=== PATIENT | male | born 1945 | race Caucasian/White ===

== ENCOUNTER 2023-04-11 09:02 | Outpatient (REF) | payer MEDICARE, SELFPAY ==
[2023-04-11 14:04] LABS: Appearance Urine Clear; Color Urine Yellow; Glucose Urine UA Negative (Negative); Leukocyte Esterase Urine Trace (Negative); Nitrite Urine Negative (Negative); PH 6.5 (5.0-9.0); UMIC TRIGGER UA YES; Urine Blood Negative (Negative); Urine Ketones Negative (Negative); Urine Protein 100 (2+) mg/dL (Neg-Trace)
[2023-04-11 14:11] LABS: Bacteria Urine None Seen (None Seen); Hyaline Casts Urine 0-2 /LPF (0-2); RBC Urine 0-2 /HPF (0-2); Squamous Epithelial Cell Urine 0-2 /HPF (0-2); WBC Urine 21-50 /HPF (0-5)
[2023-04-11 14:37] LABS: Creatinine Urine 153.25 mg/dL; Microalbum/Creatinine Ratio Ur 210.7 ug/mg cr
[2023-04-11 14:39] LABS: Alanine Aminotransferase 21 U/L (0-40); Albumin Level 3.8 g/dL (3.5-5.0); Alkaline Phosphatase 229 U/L (39-117); Anion Gap 11 (12-20); Aspartate Amino Transferase 16 U/L (5-37); Bilirubin Total 1.6 mg/dL (0.0-1.0); Blood Urea Nitrogen 14 mg/dL (9-16); Calcium 9.2 mg/dL (8.4-10.2); Carbon Dioxide 30 mmol/L (22-29); Chloride 103 mmol/L (96-108); Cholesterol 111 mg/dL; Estimated Glomerular Filt Rate > 60; Glucose Fasting 127 mg/dL (60-99); HDL Cholesterol 37 mg/dL; LDL Cholesterol Calculated 62 mg/dl; Potassium 4.4 mmol/L (3.3-5.1); Sodium 140 mmol/L (135-145); Total Protein 6.9 g/dL (6.5-8.0); Triglycerides 60 mg/dL
== END 2023-04-11 09:03 | disposition home or self-care (01) ==
LOC: HO.CHCLDS 09:02
PROVIDERS: Visit Provider Internal Medicine
DX: E11.9 Type 2 diabetes mellitus without complications (principal); E78.49 Other hyperlipidemia
CPT/HCPCS: 36415; 80053; 80061; 81001; 81003; 82043

== ENCOUNTER 2023-05-17 09:47 | Outpatient (REF) | payer MEDICARE, SELFPAY ==
[2023-05-17 14:37] LABS: Alkaline Phosphatase 187 U/L (39-117)
[2023-05-25 06:25] LABS: Alk.Phos Iso. Macrohepatic 0 % (<=0); Alk.Phos Isoenzymes Bone 61 % (28-66); Alk.Phos Isoenzymes Intest 0 % (1-24); Alk.Phos Isoenzymes Liver 39 % (25-69); Alk.Phos Isoenzymes Placental 0 % (<=0); Alk.Phos Isoenzymes Total 183 U/L (35-144)
== END 2023-05-17 09:48 | disposition home or self-care (01) ==
LOC: HO.CHCLDS 09:47
PROVIDERS: Visit Provider Internal Medicine
DX: R74.8 Abnormal levels of other serum enzymes (principal)
CPT/HCPCS: 36415; 84075; 84080

== ENCOUNTER 2023-05-23 11:38 | Outpatient (REF) | payer MEDICARE, SELFPAY ==
[2023-05-23 14:54] LABS: Thyroid Stimulating Hormone 1.52 uIU/mL (0.32-4.0)
[2023-05-23 15:18] LABS: Vitamin B12 666 pg/mL (200-900)
[2023-05-24 08:35] LABS: ~HepC Num1 0.08 S/CO (0.00-0.79); ~Hepatitis C Antibody Nonreactive (Nonreactive)
[2023-05-25 08:14] LABS: RPR Rapid Plasma Reagin NON-REACTIVE (NON-REACTIVE)
== END 2023-05-23 11:39 | disposition home or self-care (01) ==
LOC: HO.CHCLDS 11:38
PROVIDERS: Visit Provider Internal Medicine
DX: Z11.59 Encounter for screening for other viral diseases (principal); R41.3 Other amnesia
CPT/HCPCS: 36415; 82607; 84443; 86592; 86803

== ENCOUNTER 2024-07-31 10:26 | Outpatient (REF) | payer MEDICARE, SELFPAY ==
[2024-07-31 14:13] LABS: MANUAL DIFF FLAG NO
[2024-07-31 14:22] LABS: Basophils Percent Auto 0.4 % (0-2); Eosinophils Absolute Auto 0.1 X10*3/uL (0.0-0.4); Eosinophils Percent Auto 1.3 % (0-4); Hematocrit 40.3 % (42.0-52.0); Hemoglobin 13.4 g/dl (14.0-18.0); Imm Gran Abs Auto 0.03 X10*3/uL (0.00-0.03); Imm Gran Pct Auto 0.4 % (0.0-0.4); Lymphocytes Absolute Auto 1.2 X10*3/uL (1.2-4.9); Lymphocytes Percent Auto 14.6 % (20-40); Mean Corpuscular HGB Conc 33.3 g/dl (31.0-36.0); Mean Corpuscular Hemoglobin 30.5 pg (27.0-33.0); Mean Corpuscular Volume 91.6 fL (80.0-98.0); Mean Platelet Volume 10.1 fL (9.4-12.4); Monocytes Absolute Auto 0.5 X10*3/uL (0.1-1.2); Monocytes Percent Auto 6.6 % (2-11); Neutrophils Percent Auto 76.7 % (45-73); Platelet Count 223 X10*3/uL (160-400); Red Cell Distribution Width 12.5 % (11.0-16.0); White Blood Count 7.9 X10*3/uL (4.8-10.8)
[2024-07-31 15:24] LABS: TSH reflex Free T4 1.91 uIU/mL (0.32-4.0); Vitamin D 25-OH Total 21.6 ng/mL (>30)
[2024-07-31 15:34] LABS: Folate 9.9 ng/mL (> or = 4.0); Vitamin B12 594 pg/mL (200-900)
[2024-07-31 15:56] LABS: Alanine Aminotransferase 32 U/L (0-40); Albumin Level 3.7 g/dL (3.5-5.0); Alkaline Phosphatase 223 U/L (39-117); Anion Gap 8 (12-20); Aspartate Amino Transferase 27 U/L (5-37); Bilirubin Total 1.2 mg/dL (0.0-1.0); Blood Urea Nitrogen 20 mg/dL (9-16); Calcium 8.8 mg/dL (8.4-10.2); Carbon Dioxide 31 mmol/L (22-29); Chloride 102 mmol/L (96-108); Cholesterol 100 mg/dL (<200); Estimated Glomerular Filt Rate > 60; Glucose Random 337 mg/dL (60-115); HDL Cholesterol 44 mg/dL (>40); LDL Cholesterol Calculated 36 mg/dL (<100); Potassium 4.1 mmol/L (3.3-5.1); Sodium 137 mmol/L (135-145); Total Protein 6.4 g/dL (6.5-8.0); Triglycerides 104 mg/dL (<150)
[2024-07-31 16:56] LABS: Creatinine Urine 83.99 mg/dL; Microalbum/Creatinine Ratio Ur 195.2 ug/mg cr (<30)
== END 2024-07-31 10:27 | disposition home or self-care (01) ==
LOC: HO.CHCLDS 10:26
PROVIDERS: Visit Provider Internal Medicine
DX: E11.9 Type 2 diabetes mellitus without complications (principal); E78.49 Other hyperlipidemia; R41.3 Other amnesia
CPT/HCPCS: 36415; 80053; 80061; 82043; 82306; 82570; 82607; 82746; 84443; 85025

== ENCOUNTER 2024-12-10 10:01 | Outpatient (REF) | payer MEDICARE, SELFPAY ==
--- NOTE | ~2024-12-10 | XR_ITS ---
EXAMINATION: XR CHEST 2 VIEWS HISTORY: CORTEZ COMPARISON: There are no prior studies for comparison. FINDINGS: PA and lateral views of the chest are submitted. The lungs are expanded and clear. There is no pleural effusion, pneumothorax, or pulmonary vascular congestion. The heart is normal in size. The aorta is calcified. There is degenerative disc disease of the spine. XR/XR chest 2V IMPRESSION: Clear lungs. Electronically signed by: Matt Lee MD 12/10/2024 10:32 AM EDT
--- OUTSIDE RECORDS SUMMARY | 2024-12-10 11:27 | XMS_ITS | Encounter Summary ---
Author Organization [employer] Address [address] [place] [address] Care Team Providers Care Material Checker Name Role Phone Jovanna Mcarthur MD Primary Care Provider [phone] Reason for Visit * Reason Comments Consult NPV-tinea pedis and nail distrophy * Orthopedic (Routine) - Closed Specialty Diagnoses / Procedures Referred By Adolfo brewer Referred To Contact Orthopaedic Surgery Diagnoses Tinea pedis Nail dystrophy Procedures AMB Referral to Podiatry Jovanna Mcarthur MD [address] [place] [address] Phone: tel: fax: Puneet Chase DPM [address] [address] Phone: tel: fax: Referral ID Status Reason Start Date Expiration Date V isits Requested Visits Authorized [id number] Closed Consult and Treat 1 Encounter Details Date Type Department Care Team (Late st Contact Info) Description 11/20/2024 8:45 AM EST Consult Orthopedic Surgery - [place] [address] [phone] Puneet Chase DPM [address] [address] Dermatophytosis of nail (Primary Dx); Pain in toe of right foot; Pain in toe of left foot; Diabetic mononeuropathy simplex (CMS/HCC); Type II diabetes mellitus with peripheral circulatory disorder (CMS/HCC); Corns and callosities; Metatarsalgia of both feet; Hammer toe of left foot; Acquired hammer toe of right foot Social History Tobacco Use Types Packs/Day Years Used Date Smoking Tobacco: Never Assessed Sex and Gender Information Value Date Recorded Sex Assigned at Not on file Legal Sex Male 4:34 AM EST Gender Identity Not on file Sexual Orientation Not on file documented as of this encounter Last Filed Vital Signs Vital Sign Reading Time Taken Comments Blood Pressure - - Pulse - - Temperature - - Respiratory Rate - - Oxygen Saturation - - Inhaled Oxygen Concentration - - Weight 83.9 kg (185 lb) 11/20/2024 10:51 AM EST Height 167.6 cm (5' 6 ) 11/20/2024 10:51 AM EST Body Mass Index 29.86 11/20/2024 10:51 AM EST documented in this encounter Progress Notes * Puneet Chase DPM - 11/20/2024 8:45 AM EST Last PCP visit:Referring MD: Jovanna Mcarthur MD 08/04/2024 IDENTIFIER: Christophe is a 79 y.o. year old male who presents for consultation. CC: Foot pain HPI: Patient presents today complaint pain is he reports he has long painful thickened nails thick skin and balls both feet is a type II diabetic endorses occasional numbness burning tingling to his feet he states he is worried about cutting himself he notes the pain discomfort is a 7 out of 10 he states very thick painful has difficulty take care of some presents today and was referred for evaluationnotes that sometimes gets an itchy rash of both feet he has been using antifungal medications ROS: GENERAL: Pt denies nausea, fever, vomiting, chills, or shortness of breath. Pt in NAD. CARDIOLOGY: pt denies chest pain, palpitations LUNGS: pt denies shortness of breath MUSCULOSKELETAL: See HPI, otherwise no joint pain or swelling, back pain, or muscle pain. SKIN: see HPI, otherwise no lesions, rash or itching NEURO: No persistent headache, weakness or numbness The remainder of the review of systems is noncontributory PAST MEDICAL HISTORY: There is no problem list on file for this patient. Type 2 diabetes benign prostatic hyperplasia hyperlipidemia hypertension low vitamin D SOCIAL HISTORY: Social History Tobacco Use Smoking status: Not on file Smokeless tobacco: Not on file Substance Use Topics Alcohol use: Not on file ACTIVE MEDICATIONS: No outpatient medications have been marked as taking for the 11/20/24 encounter (Consult) with Puneet Chase DPM. ALLERGIES: Not on File PHYSICAL EXAM: Visit Vitals Ht 1.676 m (66 ) Wt 83.9 kg (185 lb) BMI 29.86 kg/m?? BSA 1.93 m?? PODIATRIC EXAMINATION: GENERAL: Patient appears well nourished, with NAD. VASCULAR: Dorsalis pedis pulses are 0/4 bilaterally and Posterior tibial pulses are 1/4 bilaterally. Capillary filling time within normal limits the digits. No pallor on elevation or rubor on dependency. No varicosities. Denies rest pain or claudication pain. NEUROLOGICAL: Sharp/dull sensation diminished , protective sensation intact 10/10 with 5.07 semmes kay bilaterally, vibratory sensation with tuning fork intact to the tibial tuberosity. ORTHOPEDIC: Good muscle strength 5/5 of all flexors and extensors. Dorsi flexion of ankle ,10 degrees, plantar flexion WNL. No muscle atrophy. DERMATOLOGICAL:. Toenails: Left Toenail(s) 1-5: Crumbling upon debridement, subungual debris, discoloration, dystrophy, elongation, mycotic appearance, onychomycosis, pain and thickening. Right Toenail(s) 1-5: Crumbling upon debridement, subungual debris, discoloration, dystrophy, elongation, mycotic appearance, onychomycosis, pain and thickening. Annular scaling bilateral feet moccasin distribution Skin thinning texture shiny appearance diffuse hyperpigmentation bilaterally pedal hair decreased Hyperkeratotic tissue subfifth metatarsal bilaterally BIOMECHANICS: Ankle ROM WNL, STJ ROM wnl, MTJ ROM wnl, 1st MPJ ROM wnl. IMAGING: IMPRESSION: 1. Dermatophytosis of nail 2. Pain in toe of right foot 3. Pain in toe of left foot 4. Diabetic mononeuropathy simplex (CMS/HCC) 5. Type II diabetes mellitus with peripheral circulatory disorder (CMS/HCC) 6. Corns and callosities 7. Metatarsalgia of both feet 8. Hammer toe of left foot 9. Acquired hammer toe of right foot PLAN: Pt was seen and examined, history reviewed. Discussed with patient regarding proper glucose control, exercise, and diet. Explained to patient proper shoe gear, and importance of daily foot checks. I reviewed neuropathy and why it occurs in diabetics. I educated the patient on proper blood sugar control and the importance of an HgBA1c of less than 7.0%. I reviewed the signs and symptoms of neuropathy with the patient Pt to return for another evaluation in 3 months. Debridement of mycotic toenails 6-10: Verbal informed consent was obtained from the patient. Greater than 6 nails were aseptically debrided in thickness and length with nail nippers Hyperkeratotic tissue debrided pared with a number #15 scalpel blade x2 Puneet Chase DPM documented in this encounter Plan of Treatment Upcoming Encounters Date Type Department Care Team (Late st Contact Info) Description 02/23/2025 8:15 AM EDT Office Visit Orthopedic Surgery - [place] [address] [phone] Puneet Chase DPM [address] [address] documented as of this encounter Visit Diagnoses Diagnosis Dermatophytosis of nail- Primary Pain in toe of right foot Pain in soft tissues of limb Pain in toe of left foot Pain in soft tissues of limb Diabetic mononeuropathy simplex (CMS/HCC) Type II or unspecified type diabetes mellitus with neurological manifestations, not stated as uncontrolled Type II diabetes mellitus with peripheral circulatory disorder (CMS/HCC) Type II or unspecified type diabetes mellitus with peripheral circulatory disorders, not stated as uncontrolled Corns and callosities Metatarsalgia of both feet Hammer toe of left foot Acquired hammer toe of right foot documented in this encounter Care Teams Material Checker Relationship Specialty Start Date End Date Jovanna Mcarthur MD [address] [place] [phone] PCP - General Internal Medicine 08/07/24 documented as of this encounter
--- OUTSIDE RECORDS SUMMARY | 2024-12-10 11:27 | XMS_ITS | Encounter Summary ---
Author Organization [employer] Address [address] [facility] 7[address] [place] [address] Care Team Providers Care Sander Portable Machine Name Role Phone Jovanna Mcarthur MD Primary Care Provider [phone] Encounter Details Date Type Department Care Team (Latest Contact Info) Description 12/01/2024 Travel Social History Tobacco Use Types Packs/Day Years Used Date Smoking Tobacco: Never Passive Smoke Exposure: Never Smokeless Tobacco: Never Comments:States he smokes fo r some time. Cannot tell for how long and how many cigarettes a day. Depression Answer Date Recorded Patient Health Questionnaire-9 Score 2 06/25/2024 Patient Health Questionnaire-9 Score 2 06/25/2024 Last PHQ-9: Questionnaire Data Not on file 1 Housing Stability Answer Date Recorded What is your housing situation today? I have erin winter 06/18/[address] you li ve. Do you have problems with any of the following? None of the above 06/18/2024 Food Insecurity Answer Date Recorded Within the past 12 months, y ou worried that your food would run out before you got money to buy more: Never True 06/18/2024 Within the past 12 months,th e food you bought just didn't last and you didn't have enough money to get more: Never True 10/2023 Transportation Answer Date Recorded In the past 12 months, has l ack of transportation kept you from medical appts, meetings, work or from getting things needed for daily living? No 06/18/2024 Utilities Answer Date Recorded In the past 12 months, has t he electric, gas, oil or water company threatened to shut off services in your home? No 06/18/2024 Depression Answer Date Recorded Patient Health Questionnaire-2 Score 1 06/25/2024 Internet Access Answer Date Recorded Internet Access Q1 Yes 06/18/2024 Internet Access Q2 Not on file 06/18/2024 Sex and Gender Information Value Date Recorded Sex Assigned at Male 07/17/2022 10:14 AM EDT Legal Sex Male 10:14 AM EDT Gender Identity Male 07/17/2022 10:14 AM EDT Sexual Orientation Straight 07/17/2022 10 :14 AM EDT documented as of this encounter Plan of Treatment Upcoming Encounters Date Type Department Care Team (Late st Contact Info) Description 03/09/2025 11:00 AM EDT Office Visit [facility] PEDS [address] [place] [address] Jovanna Mcarthur MD [address] [place] [address] documented as of this encounter Goals Goal Patient Goal Type Associated Problems Recent Progress Patient-Stated? Author Patient will adhere to medication regimen General No Cassia Perales Hemoglobin A1c < 8 Result Component 7.5( 10:53 AM EDT) No Cassia Perales documented as of this encounter Visit Diagnoses Not on filedocumented in this encounter Additional Health Concerns Assessment Noted Time PHQ-9 Depression Total Score: 2 06/25/20 24 10:44 AM EDT documented as of this encounter Care Teams Sander Portable Machine Relationship Specialty Start Date End Date Jovanna Mcarthur MD [address] [place] [address] PCP - General Internal Medicine 07/11/18 documented as of this encounter
--- OUTSIDE RECORDS SUMMARY | 2024-12-10 11:27 | XMS_ITS | Encounter Summary ---
Author Organization [employer] [facility] Address [address] [facility] 7[address] [place] [address] Care Team Providers Care Criminal Lawyer Name Role Phone Jovanna Mcarthur MD Primary Care Provider [phone] Reason for Referral * Consultation (Routine) - Authorized Specialty Diagnoses / Procedures Referred By Contac t Referred To Contact Cardiology Diagnoses CORTEZ (dyspnea on exertion) Jovanna Mcarthur MD [address] [place] [address] Phone: tel: fax: [facility] Cardiology [address] [facility] 2nd [address] [place], [place] Phone: tel: fax: Referral ID Status Reason Start Date Expiration Date Visits Requested Visits Authorized [id number] Authorized Specialty Services Required 12/01/2024 12/01/2025 1 1 Encounter Details Date Type Department Care Team (Late st Contact Info) Description 12/01/2024 10:00 AM EDT Office Visit [facility] MED & PEDS [address] [place] [address] Jovanna Mcarthur MD [address] [place] [address] CORTEZ (dyspnea on exertion) (Primary Dx); Type 2 diabetes mellitus without complication, without long-term current use of insulin ([facility]); CORTEZ (dyspnea on exertion); Primary hypertension Social History Tobacco Use Types Packs/Day Years [...] AM EDT documented as of this encounter Last Filed Vital Signs Vital Sign Reading Time Taken Comments Blood Pressure 122/60 12/01/2024 10:10 AM EDT Pulse 68 12/01/2024 10:10 AM EDT Temperature 36.2 ??C (97.2 ??F) 12/01/2024 10:10 AM E DT Respiratory Rate 18 12/01/2024 10:10 AM EDT Oxygen Saturation 98% 12/01/2024 10:10 AM EDT Inhaled Oxygen Concentration - - Weight 68 kg (150 lb) 12/01/2024 10:10 AM EDT Height 162.6 cm (5' 4 ) 12/01/2024 10:10 AM EDT Body Mass Index 25.75 12/01/2024 10:10 AM EDT documented in this encounter Progress Notes * Jovanna Mcarthur MD - 12/01/2024 10:00 AM EDT Subjective Patient ID: Yvan Blackburn is a 79 y.o. male who presents for No chief complaint on file.. HPI Here for follow up . Pt was c/o SOB at his last visit. Echo done shows mild grade 1, diastolic dysfunction. Patient came with his daughter who reports that he is still short of breath. He has completed the course of Lasix. The chest x-ray was not done for unclear reason. History of diabetes. Patient is doing overall well. Denies any episode or symptoms of hypoglycemia since the last office visit. Medication is administered by his daughter. History of hypertension. Patient is compliant to his medication. No reported side effect. Patient Active Problem List Diagnosis Benign prostatic hyperplasia Congenital cystic kidney disease Diabetes mellitus, type II ([facility]) Erectile dysfunction Hyperlipidemia Hypertension Low vitamin D level Pure hypercholesterolemia No Known Allergies Current Outpatient Medications on File Prior to Visit Medication Sig Dispense Refill Alcohol Swabs 70 % pads Use to test blood sugar 2 times daily 100 each 0 amLODIPine (Norvasc) 10 MG tablet Take 1 tablet (10 mg) by mouth Once per day. Dose increased to 10mg once a day 30 tablet 11 ammonium lactate (Lac-Hydrin Five) 5 % lotion To apply to the affected area 2 times a day 226 g 3 atorvastatin (Lipitor) 40 MG tablet Take 1 tablet (40 mg) by mouth at bedtime. 90 tablet 3 Blood Glucose Monitoring Suppl ([email or web address] [place] Lite) w/Device kit Use to test blood sugar 2 times daily 1 kit 0 brimonidine (AlphaGAN) 0.2 % ophthalmic solution Administer 1 drop into both eyes at bedtime. Prescribed as BID cholecalciferol (Vitamin D-3) 50 MCG (2000 UT) capsule Take 1 capsule (50 mcg) by mouth Once per day. 30 capsule 11 donepezil (Aricept) 10 MG tablet Take 1 tablet (10 mg) by mouth at bedtime. 30 tablet 11 FREESTYLE LITE test strip Use to test blood sugar 2 times daily 100 each 12 glipiZIDE (Glucotrol) 5 MG tablet TAKE ONE TABLET TWICE DAILY BEFORE MEALS 180 tablet 3 Lancets misc Use to test blood sugar 2 times daily 100 each 11 linaGLIPtin (Tradjenta) 5 MG tablet Take 1 tablet (5 mg) by mouth in the morning. 90 tablet 3 lisinopril (Zestril) 30 MG tablet Take 1 tablet (30 mg) by mouth in the morning. 90 tablet 3 Nutritional Supplements (Boost High Protein) liquid Take 237 mL by mouth in the morning and at bedtime. 1 can 2 times a day. 1 box a month 1 mL 0 QUEtiapine (SEROquel) 25 MG tablet TAKE ONE TABLET EVERY NIGHT AT BEDTIME 30 tablet 0 terazosin (Hytrin) 5 MG capsule TAKE TWO CAPSULES EVERY DAY AT BEDTIME 90 capsule 3 [DISCONTINUED] furosemide (Lasix) 20 MG tablet Take 0.5 tablets (10 mg) by mouth Once per day. 15 tablet 0 No current facility-administered medications on file prior to visit. Review of Systems Constitutional: Negative for appetite change, chills and diaphoresis. Eyes: Negative for photophobia, pain and redness. Respiratory: Positive for shortness of breath. Negative for cough and choking. Cardiovascular: Negative for palpitations and leg swelling. Gastrointestinal: Negative for blood in stool, constipation and diarrhea. Musculoskeletal: Negative for gait problem, joint swelling and myalgias. Skin: Negative for pallor. Objective BP 122/60 (BP Location: Left arm, Patient Position: Sitting, BP Cuff Size: Adult) Pulse 68 Temp97.2 ??F (36.2 ??C) (Oral) Resp 18 Ht 5' 4 (1.626 m) Wt 150 lb (68 kg) SpO2 98% BMI 25.75 kg/m?? Physical Exam Constitutional: General: He is not in acute distress. Appearance: Normal appearance. He is not ill-appearing, toxic-appearing or diaphoretic. Cardiovascular: Rate and Rhythm: Normal rate. Pulmonary: Effort: Pulmonary effort is normal. Neurological: Mental Status: He is alert. Motor: No weakness, tremor, atrophy, abnormal muscle tone, seizure activity or pronator drift. Coordination: Coordination is intact. Gait: Gait normal. Assessment/Plan Diagnoses and all orders for this visit: CORTEZ (dyspnea on exertion) - furosemide (Lasix) 20 MG tablet; Take 0.5 tablets (10 mg) by mouth Once per day. - Referral to Cardiology; Future Type 2 diabetes mellitus without complication, without long-term current use of insulin ([facility]) Comments: A1c is 7.5 No change will be made to the current medication to avoid hypoglycemia Patient is to keep as active as tolerated. Orders: - POCT Glucose - POCT HGB A1C CORTEZ (dyspnea on exertion) Comments: Chest x-ray to perform. Echocardiogram results reviewed. Patient needs to be referred to cardiology. Orders: - furosemide (Lasix) 20 MG tablet; Take 0.5 tablets (10 mg) by mouth Once per day. - Referral to Cardiology; Future Primary hypertension Comments: Blood pressure is at goal No change in management. documented in this encounter Plan of Treatment Upcoming Encounters Date Type Department Care Team (Late st Contact Info) Description 03/09/2025 11:00 AM EDT Office Visit [facility] P[facility] [address] [place] [address] Jovanna Mcarthur MD [address] [place] [phone] Scheduled Referrals Name Type Priority Associated Diagnoses Order Schedule Referral to Cardiology Outpatient Referral Routine CORTEZ (dyspnea on exertion) Expected: 12/01/2024 (Approximate), Expires: 12/01/2025 documented as of this encounter Goals Goal Patient Goal Type Associated Problems Recent Progress Patient-Stated? Author Patient will adhere to medication regimen General No Cassia Perales Hemoglobin A1c < 8 Result Component 7.5( 10:53 AM EDT) No Cassia Perales documented as of this encounter Procedures Procedure Name Priority Date/Time Associated Diagnosis Comments POCT GLYCATED HEMOGLOBIN, TOTAL Routine 12/01/2024 10:53 AM EDT Type 2 diabetes mellitus without complication, without long-term current use of insulin ([facility]) POCT GLUCOSE Routine 12/01/2024 10:53 AM EDT Type 2 diabetes mellitus without complication, without long-term current use of insulin ([facility]) documented in this encounter Results * (ABNORMAL) POCT HGB A1C (12/01/2024 10:53 AM EDT) Hemoglobin A1C 7.5(A) 4.0 - 6.0 % QC Media Lot # [id number] Blood 12/01/2024 10:5 3 AM EDT us Jovanna Mcarthur MD POINT OF CARE TEST ENTER/ED IT ORDERABLES Final Result * (ABNORMAL) POCT Glucose (12/01/2024 10:53 AM EDT) Glucose Blood, POC 292(A) 60 - 200 mg/dL QC Media Lot # [id number] Lot# Expiration Date Blood Capillary blood specimen / Unknown 12/01/2024 10:53 AM EDT Jovanna Mcarthur MD POINT OF CARE TEST ENTER/ED IT ORDERABLES Final Result documented in this encounter Visit Diagnoses Diagnosis CORTEZ (dyspnea on exertion)- Primary Other dyspnea and respiratory abnormality Type 2 diabetes mellitus without complication, without long-term current use of insulin ([facility]) Primary hypertension Unspecified essential hypertension documented in this encounter Additional Health Concerns Assessment Noted Time PHQ-9 Depression Total Score: 2 06/25/20 24 10:44 AM EDT documented as of this encounter Care Teams Criminal Lawyer Relationship Specialty Start Date End Date Jovanna Mcarthur MD [address] [place] [phone] PCP - General Internal Medicine 07/11/18 documented as of this encounter
--- OUTSIDE RECORDS SUMMARY | 2024-12-10 11:27 | XMS_ITS | Encounter Summary ---
Author Organization [employer] Address [address] [facility] 7t [place] [address] Care Team Providers Care Strike Off Machine Operator Name Role Phone Jovanna Mcarthur MD Primary Care Provider [phone] Reason for Visit * Reason Comments Pre-visit Planning SDOH negative. Tobac co screening negative. Encounter Details Date Type Department Care Team ([facility] Contact Info) Description 11/24/2024 Patient Outreach [facility] PEDS [address] [place], [place] [phone] Jovanna Mcarthur MD [address] [place], [place] [phone] Pre-visit Planning (SDOH negative. Tobacco screening negative. ) Social History Tobacco Use Types Packs/Day Years [...] AM EDT documented as of this encounter Progress Notes * Maggie Molina - 11/24/2024 3:39 PM EDT CC Maggie Mobley placed successful outbound call to patient for pre-visit planning. Patient name and confirmed. Patient confirms appt date and time, and has transportation arrangements. Biggest concern for appointment at this time is no concerns. Appropriate screenings completed in anticipation ofappointment. documented in this encounter Plan of Treatment Upcoming Encounters Date Type Department Care Team ([facility] st Contact Info) Description 03/09/2025 11:00 AM EDT Office Visit [facility] PED[facility] [address] [place] [address] Jovanna Mcarthur MD [address] [place] [address] documented as of this encounter Goals Goal [...] documented as of this encounter Care Teams Strike Off Machine Operator Relationship Specialty Start Date End Date Jovanna Mcarthur MD [address] [place] [address] PCP - General Internal Medicine 07/11/18 documented as of this encounter
--- OUTSIDE RECORDS SUMMARY | 2024-12-10 11:28 | XMS_ITS | Encounter Summary ---
Author Organization [employer] Address [address] [facility] 7 [place] [address] Care Team Providers Care Human Service Coordinator Name Role Phone Jovanna Mcarthur MD Primary Care Provider [phone]- [phone] Reason for Referral * Imaging (Routine) - Closed Specialty Diagnoses / Procedures Referred By Contac t Referred To Contact Radiology Diagnoses Elevated alkaline phosphatase in Procedures US Abdomen Complete Jovanna Mcarthur MD [address] [place] [address] Phone: tel: fax: [facility] [address] [place], [place] Phone: tel: fax: Referral ID Status Reason Start Date Expiration Date Visits Re quested Visits Authorized [id number] Closed 04/11/2023 04/10/2024 1 1 Encounter Details Date Type Department Care Team (Late st Contact Info) Description 04/11/2023 Orders Only [facility] MED & PEDS [address] [place], [place] [phone] Jovanna Mcarthur MD [address] [place], [place] [phone] Elevated alkaline phosphatase in (Primary Dx) Social History Tobacco Use Types Packs/Day Years Used Date Smoking Tobacco: Unknown Passive Smoke Exposure: Never Smokeless Tobacco: Never Comments:States he smokes fo r some time. Cannot tell for how long and how many cigarettes a day. Depression Answer Date Recorded Patient Health Questionnaire-9 Score 0 01/30/2023 Depression Answer Date Recorded Patient Health Questionnaire-2 Score 0 01/30/2023 Sex and Gender Information Value Date Recorded Sex Assigned at Male 07/17/2022 10:14 AM EDT Legal Sex Male 10:14 AM EDT Gender Identity Male 07/17/2022 10:14 AM EDT Sexual Orientation Straight 07/17/2022 10 :14 AM EDT COVID-19 Exposure Response Date Recorded In the last 10 days, have yo u been in contact with someone who was confirmed or suspected to have Coronavirus/COVID-19? No / Unsure 03/12/2023 2:03 PM EDT documented as of this encounter Progress Notes * Jovanna Mcarthur MD - 04/11/2023 3:09 PM EDT Elevated Alk phos. US abdo ordered. documented in this encounter Plan of Treatment Upcoming Encounters Date Type Department Care Team (Late st Contact Info) Description 03/09/2025 11:00 AM EDT Office Visit [facility] CH[facility] MED & PEDS [address] [place] [address] Jovanna Mcarthur MD [address] [place] [address] Scheduled Orders Name Type Priority Associated Diagnoses Orde r Schedule US Abdomen Complete Imaging Routine Elevated alkaline phosphatase in Expected: 04/11/2023, Expires: 04/11/2024 documented as of this encounter Visit Diagnoses Diagnosis Elevated alkaline phosphatase in - Primary documented in this encounter Additional Health Concerns Assessment Noted Time PHQ-9 Depression Total Score: 0 01/31/20 23 3:12 PM EDT documented as of this encounter Care Teams Human Service Coordinator Relationship Specialty Start Date End Date Jovanna Mcarthur MD [address] [place] [address] PCP - General Internal Medicine 07/11/18 documented as of this encounter
--- OUTSIDE RECORDS SUMMARY | 2024-12-10 11:28 | XMS_ITS | Encounter Summary ---
Author Organization [employer] Address [address] [facility] 7t [place] [address] Care Team Providers Care Tool Lapper Hand Name Role Phone Jovanna Mcarthur MD Primary Care Provider [phone]- [phone] Encounter Details Date Type Department Care Team ([facility] st Contact Info) Description 08/31/2024 Orders Only [facility] CH[facility] MED & PEDS [address] [place], [place] [phone] Jovanna Mcarthur MD [address] [place] [address] Social History Tobacco Use Types Packs/Day Years [...] Description 03/09/2025 11:00 AM EDT Office Visit [facility] MED & PEDS [address] [place] [address] Jovanna Mcarthur MD [address] [place] [address] documented as of this encounter Goals Goal Patient Goal Type Associated Problems Recent Progress Patient-Stated? Author Patient will adhere to medication regimen General No Cassia Perales Hemoglobin A1c < 8 Result Component 7.5( 5 10:53 AM EDT) No Cassia Perales documented as of this encounter Visit Diagnoses Not on filedocumented in this encounter Additional Health Concerns Assessment Noted Time PHQ-9 Depression Total Score: 2 06/25/20 24 10:44 AM EDT documented as of this encounter Care Teams Tool Lapper Hand Relationship Specialty Start Date End Date Jovanna Mcarthur MD [address] [place] [address] PCP - General Internal Medicine 07/11/18 documented as of this encounter
--- OUTSIDE RECORDS SUMMARY | 2024-12-10 11:28 | XMS_ITS | Encounter Summary ---
Author Organization [employer] Address [address] [facility] 7 [place] [address] Care Team Providers Care Script Coordinator Name Role Phone Jovanna Mcarthur MD Primary Care Provider [phone]- [phone] Encounter Details Date Type Department Care Team ([facility] st Contact Info) Description 07/31/2024 Orders Only [facility] CHC MED & PEDS [address] [place], [place] [phone] Jovanna Mcarthur MD [address] [place], [place] [phone] Vitamin D insufficiency (Primary Dx); Hypoproteinemia (CMS/HCC) Social History Tobacco Use Types Packs/Day Years [...] is your housing situation today? I have erincatalina winter 06/18/[address] you [...] Upcoming Encounters Date Type Department Care Team ([facility] st Contact Info) Description 03/09/2025 11:00 AM EDT Office Visit [facility] MED & PEDS [address] [place] [address] Jovanna Mcarthur MD [address] [place] [address] documented as of this encounter Goals Goal Patient Goal Type Associated Problems Recent Progress Patient-Stated? 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
--- OUTSIDE RECORDS SUMMARY | 2024-12-10 11:28 | XMS_ITS | Encounter Summary ---
Author Organization [employer] Address [address] [facility] 7t [place] [address] Care Team Providers Care Seat Trimmer Name Role Phone Jovanna Mcarthur MD Primary Care Provider [phone]- [phone] Reason for Visit * Reason Onset Date Comments Referral 07/17/2024 Encounter Details Date Type Department Care Team ([facility] Contact Info) Description 07/17/2024 Telephone [facility] MED & PEDS [address] [place], [place] [phone] Jovanna Mcarthur MD [address] [place] [address] Referral Social History Tobacco Use Types Packs/Day Years [...] AM EDT documented as of this encounter Miscellaneous Notes * Telephone Encounter - Laila Bach - 07/17/2024 1:47 PM EDT Tc from [place] with [facility] calling to inform received referral from 08/15/23 for neurology but states they do not see pt over 60 year of age and requested for referral [facility]. States will need note regarding pt memory concerns, any images and would also need recent labs done for CMP CBC B12 TSH HB A1C Lipid Panel Any questions please call phone # [phone]. documented in this encounter Plan of Treatment Upcoming Encounters Date Type Department Care Team (Late st Contact Info) Description 03/09/2025 11:00 AM EDT Office Visit [facility] CHC MED & PEDS [address] [place] [address] Jovanna Mcarthur MD [address] [place] [address] documented as of this encounter Goals Goal Patient Goal Type Associated Problems Recent Progress Patient-Stated? Author Patient will adhere to medication regimen General Cassia Murillo Hemoglobin A1c < 8 Result Component 7.5( 5 10:53 AM EDT) No Cassia Perales documented as of this encounter Visit Diagnoses Not on filedocumented in this encounter Additional Health Concerns Assessment Noted Time PHQ-9 Depression Total Score: 2 06/25/20 24 10:44 AM EDT documented as of this encounter Care Teams Seat Trimmer Relationship Specialty Start Date End Date Jovanna Mcarthur MD [address] [place] [address] PCP - General Internal Medicine 07/11/18 documented as of this encounter
--- OUTSIDE RECORDS SUMMARY | 2024-12-10 11:28 | XMS_ITS | Encounter Summary ---
Author Organization [employer] Address [address] [facility] 7 [place] [address] Care Team Providers Care Woolen Mill Utility Worker Name Role Phone Jovanna Mcarthur MD Primary Care Provider [phone]- [phone] Reason for Visit * Reason Comments Med Refill Encounter Details Date Type Department Care Team ([facility] st Contact Info) Description 12/06/2024 Refill [facility] CHC MED & PEDS [address] [place], [place] [phone] Jovanna Mcarthur MD [address] [place], [place] [phone] Primary hypertension Social History Tobacco Use Types [...] Description 03/09/2025 11:00 AM EDT Office Visit [facility] CHC MED & PEDS [address] [place] [address] Jovanna Mcarthur MD [address] [place] [address] documented as of this encounter Goals Goal Patient Goal Type Associated Problems Recent Progress Patient-Stated? Author Patient will adhere to medication regimen General No Cassia Perales Hemoglobin A1c < 8 Result Component 7.5( 5 10:53 AM EDT) No Cassia Perales documented as of this encounter Visit Diagnoses Diagnosis Primary hypertension Unspecified essential hypertension documented in this encounter Additional Health Concerns Assessment Noted Time PHQ-9 Depression Total Score: 2 06/25/20 24 10:44 AM EDT documented as of this encounter Care Teams [place] Utility Worker Relationship Specialty Start Date End Date Jovanna Mcarthur MD [address] [place] [address] PCP - General Internal Medicine 07/11/18 documented as of this encounter
--- OUTSIDE RECORDS SUMMARY | 2024-12-10 11:28 | XMS_ITS | Data Portability ---
Author Organization [employer] [facility], Ut in [facility] Address [address] [place] [id number] Care Team Providers Care Hog Pusher Name Role Phone [facility] Referring Provider Assessment No assessment recorded. Plan of Treatment Reminders Order Date Submit Date Provider Last Modified By Organization Details Last Modified Time Details Appointments None record ed. Lab None record ed. Referral None record ed. Procedures None record ed. Surgeries None record ed. Imaging None record ed. Medication Orders None record ed. Patient TargetsNo targets recorded. Patient InstructionsNo instructions recorded. Reason for Referral None Reported. Medical Equipment None Reported. Medications Name Sig Start Date Stop Date Status Note LastModified by Organization Details LastModified Time terazosin 5 mg capsule TAKE TWO CAPSULES AT BEDTIME active Not Available Not Available No t Available atorvastatin 40 mg tablet TAKE ONE TABLET BY MOUTH AT BEDTIME active Not Available Not Available No t Available ammonium lactate 12 % lotion APPLY TO THE AFFECTED AREA(S) EVERY TWELVE HOURS active Not Available Not Available No t Available lisinopril 20 mg tablet TAKE ONE TABLET DAILY active Not Available Not Available No t Available glipizide 5 mg tablet TAKE ONE TABLET TWICE DAILY BEFORE MEALS active Not Available Not Available No t Available Vitals Date Recorded Heart rate Respiratory rate Oxygen saturation Oxygen saturation in Arterial blood by Pulse oximetry Body temperature Systolic blood pressure Diastolic blood pressure Provider Name and Address Organization Details Last Updated DateTime 2 85 /min 16 /min 99 % 99 % 98.6 [degF] 136 mm[Hg] 78 mm[Hg] Shelby Torres MD [address] [facility],[address], [place], [address] , [employer] 2 22:18:37 Social History None recorded. Functional Status None recorded. Mental Status None recorded. Family History Nothing Reported. Medical History No medical history recorded. Past Encounters Encounter ID Performer Location Encounter Start Date Encounter Closed Date Diagnosis/Indication Diagnosis SNOMED-CT Code Diagnosis ICD10 Code Diagnosis Note [id number] Shelby Torres MD Main - [facility] [address] [place] [address] 02/10/2022 16:23:16 05/16/2022 11:10:28 Abrasion and/or friction burn of skin [id number] T14.8XXA 76 year old male being evaluated for skin injury to arm after minor trauma, resulting in shearing of skin, earlier today. Per photo provided by psychotherapist social worker, injury consistent with a 2 x 2 inch superficia l abrasion of top layer of skin, without significan t bleeding or pain. No other areas of concern during today's assessment . Area dressed by medic, to FU with program RN next week. Health Concerns Section Related Observation LastModified by Organization Detai ls LastModified Time None Recorded Concern Status LastModified by Organization Details LastModified Time None Recorded Advance Directives Directive None Recorded Payers Encounter Date Sequence Insurance Name Policy Number Policy Oliveira Covered Member ID Oliveira Member ID Guarantor Name 02/10/2022 1 [facility] - DOS PRIOR TO 2022 - DUAL ELIGIBLE (MEDICARE REPLACEMENT/ADV ANTAGE - HMO) Yvan Christophe [id number] [facility] Christophe Notes Date Note Type Note Provider Name and Address Organization Details Recorded Time 02/10/2022 text/html Request notes: Patient suffered a skin tear laceration to right upper arm that is approximately 2in x 2in in size. Patient was at adult day health program. Program RN provided basic first aid but advised pt will need assessment since skin is so thin and appears entire first layer is off the skin. Patient unable to come to our office today and we are not here until 02/14 (closed 02/13 for Holiday). Cookie Padder notes: dispatched to the above location for a male patient with a skin tear on his left arm. patient is alert and oriented, skin is warm pink and dry. patient states he was leaving his adult program today and when he was walking out the door caught his arm and peeled back the top layer of his skin. patient denies any pain at this time. wound is no longer bleeding. adult day program put triple antibiotic ointment and a band aid on the wound. Band-Aid was removed at this time and a nonadherent pad and tegaderm placed over the wound to keep it clean. arm was then put in a coban sleve to prevent the dressing from coming off. vitals were obtained and are as documented. [facility] [place] contacted and picture of the wound sent. [facility] [place] [facility] has no orders for the wound. red flags discussed with the patient and advised to see er treatment if any red flags arise. cleared without incident. Shelby Torres MD [address] [place] [address],[address], [place], [address], [employer] 02/10/2022 22:21:16
--- OUTSIDE RECORDS SUMMARY | 2024-12-10 11:28 | XMS_ITS | Encounter Summary ---
Author Organization [employer] Address [address] [facility] 7t [place] [address] Care Team Providers Care Durable Medical Equipment Repairer Name Role Phone Jovanna Mcarthur MD Primary Care Provider [phone] Encounter Details Date Type Department Care Team ([facility] st Contact Info) Description 08/28/2024 Orders Only [facility] [address] [place], [place] [phone] ProviderAddi MD Social History Tobacco Use Types Packs/Day Years [...] Upcoming Encounters Date Type Department Care Team ([facility] st Contact Info) Description 03/09/2025 11:00 AM EDT Office Visit [facility] MED & PEDS [address] [place] [address] Jovanna Mcarthur MD [address] [place] [address] documented as of this encounter Goals Goal Patient Goal Type Associated Problems Recent Progress Patient-Stated? Author Patient will adhere to medication regimen General No Cassia Perales Hemoglobin A1c < 8 Result Component 7.5( 10:53 AM EDT) No Cassia Perales documented as of this encounter Procedures Procedure Name Priority Date/Time Associated Diagnosis Comments CT HEAD/BRAIN VENOGRAM Routine 08/22/2024 9:39 AM EST documented in this encounter Results * CT HEAD/BRAIN VENOGRAM (08/22/2024 9:39 AM EST) Anatomical Region Laterality Modality Computed Tomogra phy us Historical Provider MD CODY CT PROCEDURES Final R esult documented in this encounter Visit Diagnoses Not on filedocumented in this encounter Additional Health Concerns Assessment Noted Time PHQ-9 Depression Total Score: 2 06/25/20 24 10:44 AM EDT documented as of this encounter Care Teams Durable Medical Equipment Repairer Relationship Specialty Start Date End Date Jovanna Mcarthur MD [address] [place] [address] PCP - General Internal Medicine 07/11/18 documented as of this encounter
--- OUTSIDE RECORDS SUMMARY | 2024-12-10 11:28 | XMS_ITS | Encounter Summary ---
Author Organization [employer] [facility] Address [address] [place] [address] [address] [place] [address] Care Team Providers Care Digital Imaging Technician Name Role Phone Jovanna Mcarthur MD Primary Care Provider [phone]- [phone] Reason for Referral * Medications - Closed Specialty Diagnoses / Procedures Referred By Adolfo t Referred To Contact Diagnoses Type 2 diabetes mellitus without complication, without long-term current use of insulin (CMS/HCC) Jovanna Mcarthur MD [address] [place] [address] Phone: tel: fax: Referral ID Status Reason Start Date Expiration Date Visits Re quested Visits Authorized [id number] Closed 1 1 Encounter Details Date Type Department Care Team (Late st Contact Info) Description 12/19/2023 Orders Only [facility] CHC MED & PEDS [address] [place] [address] Jovanna Mcarthur MD [address] [place] [address] Type 2 diabetes mellitus without complication, without long-term current use of insulin (CMS/HCC) (Primary Dx); Primary hypertension; Other hyperlipidemia; Dry skin; Xerosis cutis; Memory disturbance; Primary hypertension Social History Tobacco Use Types Packs/Day Years Used Date Smoking Tobacco: Unknown Passive Smoke Exposure: Never Smokeless Tobacco: Never Comments:States he smokes fo r some time. Cannot tell for how long and how many cigarettes a day. Depression Answer Date Recorded Patient Health Questionnaire-9 Score 0 01/30/2023 Housing Stability Answer Date Recorded What is your housing situation today? Not on luis e 07/04/[address] you li ve. Do you have problems with any of the following? None of the above 07/04/2023 Food Insecurity Answer Date Recorded Within the past 12 months, y ou worried that your food would run out before you got money to buy more: Never True 07/04/2023 Within the past 12 months,th e food you bought just didn't last and you didn't have enough money to get more: Never True Transportation Answer Date Recorded In the past 12 months, has l ack of transportation kept you from medical appts, meetings, work or from getting things needed for daily living? No 07/04/2023 Utilities Answer Date Recorded In the past 12 months, has t he electric, gas, oil or water company threatened to shut off services in your home? No 07/04/2023 Depression Answer Date Recorded Patient Health Questionnaire-2 [...] Description 03/09/2025 11:00 AM EDT Office Visit [facility] MED & PEDS [address] [place] [address] Jovanna Mcarthur MD [address] [place] [address] documented as of this encounter Goals Goal Patient Goal Type Associated Problems Recent Progress Patient-Stated? Author Patient will adhere to medication regimen General No Cassia Perales Hemoglobin A1c < 8 Result Component 7.5( 5 10:53 AM EDT) No Cassia Perales documented as of this encounter Visit Diagnoses Diagnosis Type 2 diabetes mellitus without complication, without long-term current use of insulin (CMS/HCC)- Primary Primary hypertension Unspecified essential hypertension Other hyperlipidemia Dry skin Other symptoms involving skin and integumentary tissues Xerosis cutis Other specified disease of sebaceous glands Memory disturbance Memory loss documented in this encounter Additional Health Concerns Assessment Noted Time PHQ-9 Depression Total Score: 0 01/31/20 23 3:12 PM EDT documented as of this encounter Care Teams Digital Imaging Technician Relationship Specialty Start Date End Date Jovanna Mcarthur MD [address] [place] [address] PCP - General Internal Medicine 07/11/18 documented as of this encounter
--- OUTSIDE RECORDS SUMMARY | 2024-12-10 11:28 | XMS_ITS | Clinical Summary ---
Author Organization [facility] [employer] [facility] Address [address] [place] [address] Care Team Providers Care Tunnel Worker Name Role Phone Jovanna Mcarthur MD Primary Care Provider [phone] Allergies No known active allergies Medications * This document contains information received from the source organization and may not represent a complete record from that organization. FREESTYLE LITE test stripIndications: Type 2 diabetes mellitus without complication, without long-term current use of insulin ([facility]) Use to test blood sugar 2 times daily 100 each 12 024 2024 Active Lancets miscIndications:T ype 2 diabetes mellitus without complication, without long-term current use of insulin ([facility]) Use to test blood sugar 2 times daily 100 each 11 024 Active Alcohol Swabs 70 % padsIndications:T ype 2 diabetes mellitus without complication, without long-term current use of insulin ([facility]) Use to test blood sugar 2 times daily 100 each 024 Active atorvastatin (Lipitor) 40 MG tabletIndications :Other hyperlipidemia Take 1 tablet (40 mg) by mouth at bedtime. 90 tablet 3 024 Active ammonium lactate (Lac-Hydrin Five) 5 % lotionIndications :Dry skin,Xerosis cutis To apply to the affected area 2 times a day 226 g 3 024 Active Blood Glucose Monitoring Suppl (FreeStyle Dorothy Lite) w/Device kitIndications:Ty pe 2 diabetes mellitus without complication, without long-term current use of insulin ([facility]) Use to test blood sugar 2 times daily 1 kit 04/04/2 024 Active glipiZIDE (Glucotrol) 5 MG tabletIndications :Type 2 diabetes mellitus without complication, without long-term current use of insulin ([facility]) TAKE ONE TABLET TWICE DAILY BEFORE MEALS 180 tablet 3 Active brimonidine (AlphaGAN) 0.2 % ophthalmic solutionIndicatio ns:Open-Angle Glaucoma Administer 1 drop into both eyes at bedtime. Prescribed as BID Active amLODIPine (Norvasc) 10 MG tabletIndications :Primary hypertension Take 1 tablet (10 mg) by mouth Once per day. Dose increased to 10 mg once a day 30 tablet 11 2024 Active cholecalciferol (Vitamin D-3) 50 MCG (1999 UT) capsuleIndication s:Vitamin D insufficiency Take 1 capsule (50 mcg) by mouth Once per day. 30 capsule 11 Active Nutritional Supplements (Boost High Protein) liquidIndications :Hypoproteinemia ([facility]) Take 237 mL by mouth in the morning and at bedtime. 1 can 2 times a day. 1 box a month 1 mL Active QUEtiapine (SEROquel) 25 MG tabletIndications :Type 2 diabetes mellitus without complication, without long-term current use of insulin ([facility]) TAKE ONE TABLET EVERY NIGHT AT BEDTIME 30 tablet Active furosemide (Lasix) 20 MG tabletIndications :CORTEZ (dyspnea on exertion) Take 0.5 tablets (10 mg) by mouth Once per day. 15 tablet 2 025 2025 Active lisinopril 30 MG tabletIndications :Primary hypertension TAKE ONE TABLET EVERY MORNING 90 tablet 3 Active donepezil (Aricept) 10 MG tabletIndications :Memory disturbance TAKE ONE TABLET EVERY NIGHT AT BEDTIME 30 tablet 11 Active terazosin (Hytrin) 5 MG capsule TAKE TWO CAPSULES EVERY DAY AT BEDTIME 90 capsule Active Tradjenta 5 MG tabletIndications :Type 2 diabetes mellitus without complication, without long-term current use of insulin ([facility]) TAKE ONE TABLET EVERY MORNING 30 tablet Active donepezil (Aricept) 10 MG tabletIndications :Memory disturbance Take 1 tablet (10 mg) by mouth at bedtime. 30 tablet 11 024 2024 Discontinued linaGLIPtin (Tradjenta) 5 MG tabletIndications :Type 2 diabetes mellitus without complication, without long-term current use of insulin ([facility]) Take 1 tablet (5 mg) by mouth in the morning. 90 tablet 3 024 2024 Discontinued lisinopril (Zestril) 30 MG tabletIndications :Primary hypertension Take 1 tablet (30 mg) by mouth in the morning. 90 tablet 3 024 2024 Discontinued terazosin (Hytrin) 5 MG capsule TAKE TWO CAPSULES EVERY DAY AT BEDTIME 90 capsule 3 024 2024 Discontinued furosemide (Lasix) 20 MG tabletIndications :CORTEZ (dyspnea on exertion) Take 0.5 tablets (10 mg) by mouth Once per day. 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 Erectile dysfunction 06/13/2012 Benign prostatic hyperplasia 03/21/2012 Diabetes mellitus, type II 02/07/2012 Hypertension 02/07/2012 Pure hypercholesterolemia 02/07/2012 Encounters Date Type Department Care Team Description 12/08/2024 Refill [facility] [address] [place] [address] Jovanna Mcarthur MD Memory disturbance; Type 2 diabetes mellitus without complication, without long-term current use of insulin ([facility]) 12/06/2024 Refill [facility] [address] [place] [address] Jovanna Mcarthur MD Primary hypertension 12/01/2024 10:00 AM EDT Office Visit [facility] [address] [place] [address] Jovanna Mcarthur MD CORTEZ (dyspnea on exertion) (Primary Dx); Type 2 diabetes mellitus without complication, without long-term current use of insulin ([facility]); CORTEZ (dyspnea on exertion); Primary hypertension 12/01/2024 Travel 11/24/2024 Patient Outreach [facility] [address] [place] [address] Jovanna Mcarthur MD Pre-visit Planning (SDOH negative. Tobacco screening negative. ) 10/20/2024 Refill [facility] [address], [place] [phone] Jovanna Mcarthur MD Type 2 diabetes mellitus without complication, without long-term current use of insulin (CMS/HCC) 10/15/2024 Telephone [facility] [address] [place], [place] [phone] Julisa Dotson RN 10/15/2024 Orders Only [place] [facility] [address] [place], [place] [phone] Addi Joyner MD 09/12/2024 Refill [facility] [address], [place] [phone] Jovanna Mcarthur MD Type 2 diabetes mellitus without complication, without long-term current use of insulin ([facility]) from Last 3 Months Immunizations Name Administration Dates Next Due Hep B, adult 01/09/2018,09/05/2017,09/21/2016 Influenza High-dose Quadriva lent Preservative Free 06/20/2023,07/15/2020 Influenza injectable quadriv alent preservative free 09/21/2016,06/08/2014 Influenza, High Dose Seasona l, Preservative Free 06/25/2024,07/03/2018,06/11/2017 Influenza, Split (incl. karen fied surface antigen) 06/30/2013,06/19/2012 Pfizer Covid-19 Vaccine 12+ 06/25/2024 Pneumococcal Conjugate PCV 13 05/26/2015 Pneumococcal Conjugate PCV 20 11/21/2023 Pneumococcal Polysaccharide PPSV23 09/21/2016 RSV Bivalent 11/21/2023 TD (adult), 2 Lf tetanus tox oid, preservative free, adsorbed 06/19/2012 Tdap 02/10/2016 Zoster, Recombinant 11/21/2023,05/23/2023 Zoster, live 05/26/2015 Social History Tobacco Use Types Packs/Day Years Used Date Smoking Tobacco: Never Passive Smoke Exposure: Never Smokeless Tobacco: Never Tobacco Cessation:Counseling Given: Not Answered Comments:States he smokes for some time. Cannot tell for how long [...] Orientation Straight 07/17/2022 10 :14 AM EDT Last Filed Vital Signs Vital Sign Reading [...] Mass Index 25.75 12/01/2024 10:10 AM EDT Plan of Treatment Upcoming Encounters Date Type Department Care Team (Late st Contact Info) Description 03/09/2025 11:00 AM EDT Office Visit [facility] [address] [place] [address] Jovanna Mcarthur MD [address] [place] [address] Health Maintenance Due Date Last Done Comments Diabetes: Hemoglobin A1C 03/03/2025 025, 06/25/2024, 05/23/2023, Additional history exists Depression Screening 06/25/2025 06/25/2024, 06/25/20 24 Alcohol/Substance Use Screening 07/31/2025 07/31/2024 Diabetes: Foot Exam 07/31/2025 07/31/2024, 07/31/2024, 07/31/2024 Diabetes: Urine Protein Screening 07/31/2025 07/31/2024, 04/11/2023, 02/10/2021 Lipid Panel 07/31/2025 07/31/2024, 03/18, 02/10/2021 SDOH Screening 11/24/2025 11/24/2024 Tobacco Screening 12/01/2025 12/01/2024 DTaP/Tdap/Td Vaccines (2 - Td or Tdap) 02/09/2026 02/10/2016, 06/19/2012 Eye Exam 07/03/2026 07/03/2024, 06/17, 07/03/2024, Additional history exists Hepatitis B Vaccines Completed 01/09/2018, 09/05/2017, 09/21/2016 Pneumococcal Vaccine: 50+ Years Completed 11/21/2023, 09/21/2016, 05/26/2015 RSV Patients and Patients Aged 60 years or older Completed 11/21/2023 Zoster Vaccines Completed 11/21/2023, 0 02/2023, 05/26/2015 COVID-19 Vaccine Completed 06/25/2024, , 12/22/2020, Additional history exists Influenza Vaccine Completed 06/25/2024, , 07/15/2020, Additional history exists HIB Vaccines Aged Out No longer eligi ble based on patient's age to complete this topic HPV Vaccines Aged Out No longer eligi ble based on patient's age to complete this topic Hepatitis A Vaccines Aged Out No long er eligible based on patient's age to complete this topic IPV Vaccines Aged Out No longer eligi ble based on patient's age to complete this topic Meningococcal Vaccine Aged Out No riya jamia eligible based on patient's age to complete this topic RSV under 20 months Aged Out No longe r eligible based on patient's age to complete this topic Rotavirus Vaccines Aged Out No longer eligible based on patient's age to complete this topic Goals Goal Patient Goal Type Associated Problems Recent Progress Patient-Stated? Author Patient will adhere to medication regimen General No Cassia Perales Hemoglobin A1c < 8 Result Component 7.5( 10:53 AM EDT) No Cassia Perales Procedures Procedure Name Priority Date/Time Associated Diagnosis Comments XR CHEST 2 VIEWS Routine 12/10/2024 10:0 2 AM EDT CORTEZ (dyspnea on exertion) POCT GLYCATED HEMOGLOBIN, TOTAL Routine 12/01/2024 10:53 AM EDT Type 2 diabetes mellitus without complication, without long-term current use of insulin ([facility]) POCT GLUCOSE Routine 12/01/2024 10:53 AM EDT Type 2 diabetes mellitus without complication, without long-term current use of insulin ([facility]) TRANSTHORACIC ECHO (TTE) COMPLETE Routine 10/14/2024 9:23 AM EST ALBUMIN, RANDOM URINE W/CREATININE Routine 07/31/2024 10:30 AM EST Type 2 diabetes mellitus without complication, without long-term current use of insulin ([facility]) LIPID PANEL, STANDARD Routine 07/31/2024 10:27 AM EST Type 2 diabetes mellitus without complication, without long-term current use of insulin (CMS/HCC) Other hyperlipidemia from Last 3 Months or Most Recently Relevant to Health Maintenance Results * XR Chest 2 Views (12/10/2024 10:02 AM EDT) Anatomical Region Laterality Modality Chest Radiographic Zara ging 12/10/2024 10:0 2 AM EDT Narrative 12/10/2024 10:35 AM EDT ?[facility] ?[address] ?[place] [address] ?XRay Report ? Signed ? Patient: Saeed,Yvan ?MR#: [id number] ?? 4 ? : 1945 ?Acct:[id number] ? Age/Sex: 79 / M ?ADM Date: 12/10/24 ? Loc: HO.HHCX ? Attending Dr: Jovanna Mcarthur MD ? Ordering Physician: Jovanna Mcarthur MD ?? Date of Service: 12/10/24 ?? Procedure(s): XR chest 2V ?? Accession Number(s): [id number] ? cc: Jovanna Mcarthur MD ? EXAMINATION: ??XR CHEST 2 VIEWS ? HISTORY: CORTEZ ? COMPARISON: There are no prior studies for comparison. ? FINDINGS: ??PA and lateral views of the chest are submitted. The lungs ?? are expanded and clear. ??There is no pleural effusion, pneumothorax, or ?? pulmonary vascular congestion. ??The heart is normal in size. The aorta ?? is calcified. ??There is degenerative disc disease of the spine. ? XR/XR chest 2V ?? IMPRESSION: ?? Clear lungs. ? Electronically signed by: ??Matt Lee MD ??12/10/2024 10:32 AM EDT ?? RP ? Dictated By: ?Matt Lee MD ? Signed By: ?<Electronically signed by Matt Lee MD in OV> ?12/10/24 1032 ? DD/ 1002 ? TD/TT: 12/10/24 1016 ? Solar Sales Associate: ? Procedure Note Ramy, Image - 12/10/2024 [facility] [address] [place] [address] XRay Report Signed Patient: Yvan SaeedMR#: [id number] 4 : 5Acct:[id number] Age/Sex: 79 / MADM Date: 12/10/24 Loc: HO.HHCX Attending Dr: Jovanna Mcarthur MD Ordering Physician: Jovanna Mcarthur MD Date of Service: 12/10/24 Procedure(s): XR chest 2V Accession Number(s): [id number] cc: Jovanna Mcarthur MD EXAMINATION: XR CHEST 2 VIEWS HISTORY: CORTEZ COMPARISON: There are no prior studies for comparison. FINDINGS: PA and lateral views of the chest are submitted. The lungs are expanded and clear. There is no pleural effusion, pneumothorax, or pulmonary vascular congestion. The heart is normal in size. The aorta is calcified. There is degenerative disc disease of the spine. XR/XR chest 2V IMPRESSION: Clear lungs. Electronically signed by: Matt Lee MD 12/10/2024 10:32 AM EDT Dictated By: Matt Lee MD Signed By: <Electronically signed by Matt Lee MD in OV> 12/10/24 1032 DD/ 1002 TD/TT: 12/10/24 1016 Solar [employer] Associate: us Jovanna Mcarthur MD IMG XR PROCEDURES Edited Re sult - Final * (ABNORMAL) POCT HGB A1C (12/01/2024 10:53 [...] Media Lot # [id number] Lot# Expiration Date [id number] Blood Capillary blood specimen / Unknown 12/01/2024 10:53 AM EDT Jovanna Mcarthur MD POINT OF CARE TEST ENTER/ED IT ORDERABLES Final Result * Transthoracic echo (TTE) complete (10/14/2024 9:23 AM EST) us Historical Provider CV ECHO PROCEDURES Final Result * (ABNORMAL) Albumin, Random Urine W/Creatinine (07/31/2024 10:30 AM EST) Creatinine, Urine 83.99 mg/dL [facility] Microalbumin Urine 164.0 mg/L [facility] Microalbum Creatinine Ratio Ur 195.2(H) <30 ug/mg cr [facility] Comment:Albumin/Creatinine R atio Reference Ranges: Normal: < 30 ug/mg creatinine Microalbuminuria: 30 - 300 ug/mg creatinineClinical Albuminuria: > 300 ug/mg creatinine Urine (Urine, Random) 07/31/2024 10:30 AM EST 07/31/2024 2:17 PM EST Jovanna Mcarthur MD LAB URINE ORDERABLES Final Result [facility] [address] [place] [address] [phone] * Lipid Panel, Standard (07/31/2024 10:27 AM EST) Triglycerides 104 <150 mg/dL [facility] Comment:Desirable Triglyceri de: less than 150 mg/dLBorderline High Triglyceride 150-199 mg/dLHigh Triglyceride: 200-499 mg/dLVery High Triglyceride: greater than or equal to 5OO mg/dL Cholesterol 100 <200 mg/dL [facility] Comment:Desirable Cholestero l: less than 200 mg/dLBorderline High Cholesterol: 200-239 mg/dLHigh Cholesterol: greater than 239 mg/dL LDL Cholesterol Calculated 36 <100 mg/dL [facility] Comment:Desirable LDL: less than 100 mg/dLNear Optimal/Above Optimal LDL: 110- 129 mg/dLBorderline High LDL: 130-159 mg/dLHigh LDL: 160-189 mg/dLVery High LDL: greater than or equal to 190 mg/dL HDL Cholesterol 44 >40 mg/dL [facility] Comment:Desirable HDL: great er than 40 mg/dL Note: This HDL assay may give artificially low results in patients with liver disease. Blood Venous blood specimen / Unknown 07/31/2024 10:27 AM EST 07/31/2024 2:10 PM EST Jovanna Mcarthur MD LAB BLOOD ORDERABLES Final Result Performing Organization Address City/State/[facility] Co de Phone Number [facility] [address] [place] [phone] from Last 3 Months or Most Recently Relevant to Health Maintenance Insurance - [employer] Care Teams Tunnel Worker Relationship Specialty Start Date End Date Jovanna Mcarthur MD [address] [place] [phone] PCP - General Internal Medicine 07/11/18
--- OUTSIDE RECORDS SUMMARY | 2024-12-10 11:28 | XMS_ITS | Clinical Summary ---
Author Organization [address] [place] [address] [facility] Address [address] [place] [address] Phone Care Team Providers Care Fountain Operator Name Role Phone Jovanna Mcarthur MD Primary Care Provider [phone] Medications No known medications Encounters Date Type Department Care Team Description 11/20/2024 8:45 AM EST Consult Orthopedic [address] [address] Puneet Chase DPM Dermatophytosis of nail (Primary Dx); Pain in toe of right foot; Pain in toe of left foot; Diabetic mononeuropathy simplex (CMS/HCC); Type II diabetes mellitus with peripheral circulatory disorder (CMS/HCC); Corns and callosities; Metatarsalgia of both feet; Hammer toe of left foot; Acquired hammer toe of right foot from Last 3 Months Social History Tobacco Use Types Packs/Day Years Used Date Smoking Tobacco: Never Assessed Sex and Gender Information Value Date Recorded Sex Assigned at Not on file Legal Sex Male 4:34 AM EST Gender Identity Not on file Sexual Orientation Not on file Last Filed Vital Signs Vital Sign Reading Time Taken Comments Blood Pressure - - Pulse - - Temperature - - Respiratory Rate - - Oxygen Saturation - - Inhaled Oxygen Concentration - - Weight 83.9 kg (185 lb) 11/20/2024 10:51 AM EST Height 167.6 cm (5' 6 ) 11/20/2024 10:51 AM EST Body Mass Index 29.86 11/20/2024 10:51 AM EST Plan of Treatment Upcoming Encounters Date Type Department Care Team (Late st Contact Info) Description 02/23/2025 8:15 AM EDT Office Visit [facility] [address] [address] Puneet Chase DPM [address] [address] Health Maintenance Due Date Last Done Comments Diabetes: Annual GFR (Glomerular Filtration Rate) 1945 Diabetes: Annual Foot Exam 1954 Diabetes: Annual Retina Eye Exam 1955 Falls Risk Assessment 08/07/2024 Medicare Annual Wellness Visit 08/07/2024 Social Influencers of Health Screening 08/07/2024 Diabetes: Annual Urine Albumin-Creatinine Ratio (uACR) 11/20/2024 Hypertension/CHF/CAD Annual BMP Blood Test 11/20/2024 Diabetes: Blood Sugar Control Test (HGBA1C) 12/24/2024 06/25/2024 Depression Screening 06/25/2025 06/25/2024 DTaP,Tdap,and Td Vaccines (3 - Td or Tdap) 02/09/2026 02/10/2016, 06/19/2012 Cholesterol Screening (Lipid Panel) 07/31/2029 07/31/2024 Hepatitis B Vaccines Completed 01/09/2018, 09/05/2017, 09/21/2016 Pneumococcal Vaccine: 50+ Years Completed 11/21/2023, 09/21/2016, 05/26/2015 RSV Immunization Patients 60+ Years Old Completed 11/21/2023 Zoster Vaccines Completed 11/21/2023, 02/2023, 05/26/2015 COVID-19 Vaccine Completed 06/25/2024, , [...] on patient's age to complete this topic MMR Vaccines Aged Out No longer eligi ble based on patient's age to complete this topic Meningococcal ACWY Vaccine Aged Out N o longer eligible based on patient's age to complete this topic Meningococcal B Vacine Aged Out No lo nger eligible based on patient's age to complete this topic RSV Immunization Patients Under 20 months Aged Out No longer eligible based on patient's age to complete this topic Varicella Vaccines Aged Out No longer eligible based on patient's age to complete this topic Insurance [employer] MEDICARE Member Subscriber Plan / Payer (Ef fective 2019-Present) Name:Yavn Saeed Relation to Subscriber:Self Name:Yvan Saeed Payer ID:[id number] Group ID:[id number] Type:Not on file Address: [place] [address] [address] [address] Care Teams Fountain Operator Relationship Specialty Start Date End Date Jovanna Mcarthur MD [address] [place] [phone] PCP - General Internal Medicine 08/07/24
--- OUTSIDE RECORDS SUMMARY | 2024-12-10 11:28 | XMS_ITS | Encounter Summary ---
Author Organization [employer] Address [address] [facility] 7 [place] [address] Care Team Providers Care Switch Repairer Name Role Phone Jovanna Mcarthur MD Primary Care Provider [phone] Reason for Visit * Reason Comments Med Refill Encounter Details Date Type Department Care Team ([facility] st Contact Info) Description 12/08/2024 Refill [facility] [address] [place], [place] [phone] Jovanna Mcarthur MD [address] [place], [place] [phone] Memory disturbance; Type 2 diabetes mellitus without complication, without long-term current use of insulin ([facility]) Social History Tobacco Use Types Packs/Day Years [...] Upcoming Encounters Date Type Department Care Team ([facility] st Contact Info) Description 03/09/2025 11:00 AM EDT Office Visit [facility] [address] [place] [address] Jovanna Mcarthur MD [address] [place] [address] documented as of this encounter Goals Goal Patient Goal Type Associated Problems Recent Progress Patient-Stated? Author Patient will adhere to medication regimen General No Cassia Perales Hemoglobin A1c < 8 Result Component 7.5( 5 10:53 AM EDT) No Cassia Perales documented as of this encounter Visit Diagnoses Diagnosis Memory disturbance Memory loss Type 2 diabetes mellitus without complication, without long-term current use of insulin ([facility]) documented in this encounter Additional Health Concerns Assessment Noted Time PHQ-9 Depression Total Score: 2 06/25/20 24 10:44 AM EDT documented as of this encounter Care Teams Switch Repairer Relationship Specialty Start Date End Date Jovanna Mcarthur MD [address] [place] [address] PCP - General Internal Medicine 07/11/18 documented as of this encounter
--- OUTSIDE RECORDS SUMMARY | 2024-12-10 11:28 | XMS_ITS | Encounter Summary ---
Author Organization [employer] Address [address] [facility] 7 [place] [address] Care Team Providers Care Link Trainer Maintenance Worker Name Role Phone Jovanna Mcarthur MD Primary Care Provider [phone] Encounter Details Date Type Department Care Team ([facility] st Contact Info) Description 05/11/2023 Orders Only [facility] [address] [place], [place] [phone] Jovanna Mcarthur MD [address] [place] [address] Elevated alkaline phosphatase level (Primary Dx) Social History Tobacco Use Types [...] as of this encounter Miscellaneous Notes * Result Encounter Note - Jovanna Mcarthur MD - 05/11/2023 1:59 PM EDT Please call. Elevated alk Phos which is trending down. We will keep monitoring the levels. I will recheck the blood test at pt's next visit. documented in this encounter Plan of Treatment Upcoming Encounters Date Type Department Care Team (Late st Contact Info) Description 03/09/2025 11:00 AM EDT Office Visit [facility] [address] [place], [place] [phone] Jovanna Mcarthur MD [address] [place], [place] [phone] documented as of this encounter Procedures Procedure Name Priority Date/Time Associated Diagnosis Comments ALKALINE PHOSPHATASE, ISOENZYMES Routine 05/17/2023 9:50 AM EDT Elevated alkaline phosphatase level ALKALINE PHOSPHATASE Routine 05/17/2023 9:50 AM EDT Elevated alkaline phosphatase level documented in this encounter Results * (ABNORMAL) Alkaline phosphatase, isoenzymes (05/17/2023 9:50 AM EDT) Alkaline Phosphatase 183(A) 35 - 144 U/L [facility] Intestinal Isoenzymes 0(A) 1 - 24 % [facility] Bone Isoenzymes 61 28 - 66 % [facility] Liver Isoenzymes 39 25 - 69 % [facility] Placental Isoenzymes 0 <=0 % [facility] Macrohepatic Isoenzymes 0 <=0 % [facility] Comment:THIS TEST WAS PERFOR MED AT:[employer] [place] [address]MHIAOXBLINO GUZMÁN MD,PHD Interpretation TNP [facility] Blood Venous blood specimen / Unknown 05/17/2023 9:50 AM EDT 05/17/2023 2:16 PM EDT us Jovanna Mcarthur MD LAB BLOOD ORDERABLES Final Result [facility] [address] [place] [address] [phone] * (ABNORMAL) Alkaline Phosphatase (05/17/2023 9:50 AM EDT) Alkaline Phosphatase 187(H) 39 - 117 U/L [facility] Blood Venous blood specimen / Unknown 05/17/2023 9:50 AM EDT 05/17/2023 2:16 PM EDT Jovanna Mcarthur MD LAB BLOOD ORDERABLES Final Result [facility] [address] [place] [phone] [phone] documented in this encounter Visit Diagnoses Diagnosis Elevated alkaline phosphatase level- Primary documented in this encounter Additional Health Concerns Assessment Noted Time PHQ-9 Depression Total Score: 0 01/31/20 23 3:12 PM EDT documented as of this encounter Care Teams Link Trainer Maintenance Worker Relationship Specialty Start Date End Date Jovanna Mcarthur MD [address] [place] [phone] PCP - General Internal Medicine 07/11/18 documented as of this encounter
== END 2024-12-10 10:02 | disposition home or self-care (01) ==
LOC: HO.HHCX 10:01
PROVIDERS: Visit Provider Internal Medicine
DX: R06.09 Other forms of dyspnea (principal)
CPT/HCPCS: 71046

== ENCOUNTER → 2024-12-10 10:02 | Outpatient (BNV) | payer MEDICARE, SELFPAY | PROVIDERS: Visit Provider Radiology Diagnostic Radiology | DX: R06.02 Shortness of breath (principal) | CPT/HCPCS: 71046 ==

== ENCOUNTER 2025-05-04 10:40 | Outpatient (REF) | payer OTHER, SELFPAY ==
--- OUTSIDE RECORDS SUMMARY | 2025-05-04 11:40 | XMS_ITS | Clinical Summary ---
Author Organization [address] [facility] Address [address] [place] [address] Phone Care Team Providers Care Dragline Oiler Name Role Phone Jovanna Mcarthur MD Primary Care Provider [phone] Medications No known medications Social History Tobacco Use Types Packs/Day Years [...] 11/20/2024 10:51 AM EST Plan of Treatment Health Maintenance Due Date Last Done Comments Diabetes: Annual GFR (Glomerular Filtration Rate) 1944 Diabetes: Annual Foot Exam 1954 Diabetes: Annual Retina Eye Exam 1954 Falls Risk Assessment 08/07/2024 Medicare Annual Wellness Visit 08/07/2024 Social Influencers of Health Screening 08/07/2024 Depression Screening 09/17/2024 Diabetes: Annual Urine Albumin-Creatinine Ratio (uACR) 11/20/2024 Hypertension/CHF/CAD Annual BMP Blood Test 11/20/2024 COVID-19 Vaccine ( season) 2024 06/25/2024, 10/13/2021, 12/22/2020, Additional history exists Diabetes: Blood Sugar Control Test (HGBA1C) 12/24/2024 06/25/2024 Influenza Vaccine (#1) 2025 , 06/20/2023, 07/15/2020, Additional history exists DTaP,Tdap,and Td Vaccines (3 - Td or Tdap) 02/09/2026 02/10/2016, 06/19/2012 Cholesterol Screening (Lipid Panel) 07/31/2029 07/31/2024 Hepatitis B Vaccines Completed 01/09/2018, 09/05/2017, 09/21/2016 Pneumococcal Vaccine: 50+ Years Completed 11/21/2023, 09/21/2016, 05/26/2015 RSV Immunization Adult Patients Completed 11/21/2023 Zoster Vaccines Completed 11/21/2023, 02/2023, 05/26/2015 HIB Vaccines Aged Out No longer eligi [...] age to complete this topic Meningococcal B Vaccine Aged Out No l onger eligible based on patient's age to complete this topic RSV Immunization Patients Under 20 months Aged Out No longer eligible based on patient's age to complete this topic Varicella Vaccines Aged Out No longer eligible based on patient's age to complete this topic Insurance [facility] Member Subscriber Plan / Payer (Ef fective 2019-Present) Name:SaeedYvan vieira Relation to Subscriber:Self Name:SaeedYvan vieira S Payer ID:[id number] Group ID:[id number] Type:Not on file Address: [place] [address] [place] [id number] Care Teams Dragline Oiler Relationship Specialty Start Date End Date Jovanna Mcarthur MD [address] [place] [phone] PCP - General Internal Medicine 08/07/24
--- OUTSIDE RECORDS SUMMARY | 2025-05-04 11:40 | XMS_ITS | Clinical Summary ---
Author Organization [employer] Address [address] [facility] 7[address] [place] [address] Care Team Providers Care Bridge Painter Helper Name Role Phone Jovnana Mcarthur MD Primary Care Provider [phone] Allergies No known active allergies Medications * This document contains information received from the source organization and may not represent a complete record from that organization. Alcohol Swabs 70 % padsIndications:T ype 2 diabetes mellitus without complication, without long-term current use of insulin ([facility]) Use to test blood sugar 2 times daily 100 each 024 Active ammonium lactate (Lac-Hydrin Five) 5 % lotionIndications :Dry skin,Xerosis cutis To apply to the affected area 2 times a day 226 g 3 024 Active Blood Glucose Monitoring Suppl (FreeStyle Anchor Lite) w/Device kitIndications:Ty pe 2 diabetes mellitus without complication, without long-term current use of insulin ([facility]) Use to test blood sugar 2 times daily 1 kit Active glipiZIDE (Glucotrol) 5 MG tabletIndications :Type 2 diabetes mellitus without complication, without long-term current use of insulin ([facility]) TAKE ONE TABLET TWICE DAILY BEFORE MEALS 180 tablet 3 Active brimonidine (AlphaGAN) 0.2 % ophthalmic solutionIndicatio ns:Open-Angle Glaucoma Administer 1 drop into both eyes at bedtime. Prescribed as BID Active amLODIPine (Norvasc) 10 MG tabletIndications :Primary hypertension Take 1 tablet (10 mg) by mouth Once per day. Dose increased to 10 mg once a day 30 tablet 11 07/31/2 024 11/14/ 2025 Active cholecalciferol (Vitamin D-3) 50 MCG (1999 UT) capsuleIndication s:Vitamin D insufficiency Take 1 capsule (50 mcg) by mouth Once per day. 30 capsule Active Nutritional Supplements (Boost High Protein) liquidIndications :Hypoproteinemia ([facility]) Take 237 mL by mouth in the morning and at bedtime. 1 can 2 times a day. 1 box a month 1 mL Active lisinopril 30 MG tabletIndications :Primary hypertension TAKE ONE TABLET EVERY MORNING 90 tablet 3 Active donepezil (Aricept) 10 MG tabletIndications :Memory disturbance TAKE ONE TABLET EVERY NIGHT AT BEDTIME 30 tablet Active terazosin (Hytrin) 5 MG capsule TAKE TWO CAPSULES EVERY DAY AT BEDTIME 90 capsule 3 Active Tradjenta 5 MG tabletIndications :Type 2 diabetes mellitus without complication, without long-term current use of insulin ([facility]) TAKE ONE TABLET EVERY MORNING 30 tablet Active Easy Touch Lancets 33G/Twist miscIndications:T ype 2 diabetes mellitus without complication, without long-term current use of insulin ([facility]) TEST BLOOD SUGAR TWICE DAILY 100 each Active glucose blood (FREESTYLE LITE) test stripIndications: Type 2 diabetes mellitus without complication, without long-term current use of insulin ([facility]) TEST BLOOD SUGAR TWICE DAILY 100 strip Active atorvastatin (Lipitor) 40 MG tabletIndications :Other hyperlipidemia Take 1 tablet (40 mg) by mouth at bedtime. 90 tablet 3 Active furosemide (Lasix) 20 MG tabletIndications :CORTEZ (dyspnea on exertion) TAKE ONE-HALF TABLET EVERY MORNING 15 tablet 2 025 Active QUEtiapine (SEROquel) 25 MG tabletIndications :Type 2 diabetes mellitus without complication, without long-term current use of insulin ([facility]) TAKE ONE TABLET BY MOUTH AT BEDTIME 30 tablet 1 Active QUEtiapine (SEROquel) 25 MG tabletIndications :Type 2 diabetes mellitus without complication, without long-term current use of insulin ([facility]) TAKE ONE TABLET AT BEDTIME 30 tablet 025 2024 Discontinued(R eorder (will not trigger notification to Pharmacy)) Active Problems Problem Noted Date Diagnosed Date Low vitamin D level 02/18/2021 Hyperlipidemia 12/09/2018 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 Erectile dysfunction 06/13/2012 Benign prostatic hyperplasia 03/21/2012 Diabetes mellitus, type II 02/07/2012 Hypertension 02/07/2012 Pure hypercholesterolemia 02/07/2012 Encounters Date Type Department Care Team Description 04/24/2025 Telephone [facility] [address] [place] [address] Jovanna Mcarthur MD Lab Orders 04/22/2025 Orders Only [facility] [address] [place] [address] Jovanna Mcarthur MD Type 2 diabetes mellitus without complication, without long-term current use of insulin ([facility]) (Primary Dx) 04/06/2025 Refill [facility] [address] [place] [address] Jovanna Mcarthur MD Type 2 diabetes mellitus without complication, without long-term current use of insulin ([facility]) 03/26/2025 Telephone [facility] [address] [place] [phone] Tonie Campbell LPN 03/17/[address] [address] Tonie Campbell LPN 03/09/2025 11:00 AM EDT Office Visit [facility] [address] [place] [address] Jovanna Mcarthur MD Primary hypertension (Primary Dx); Type 2 diabetes mellitus without complication, without long-term current use of insulin ([facility]); Dietary counseling; Exercise counseling; Overweight; Other hyperlipidemia; CORTEZ (dyspnea on exertion) 03/09/2025 Travel 03/06/2025 Telephone [facility] [address] [place] [address] Jovanna Mcarthur MD chart prep 03/03/2025 Refill [facility] [address] [place] [address] Jovanna Mcarthur MD Type 2 diabetes mellitus without complication, without long-term current use of insulin ([facility]) 03/02/2025 Refill [facility] [address] [place] [address] Jovanna Mcarthur MD CORTEZ (dyspnea on exertion) 02/05/2025 Refill [facility] [address] [place] [address] Jovanna Mcarthur MD Other hyperlipidemia; Type 2 diabetes mellitus without complication, without long-term current use of insulin ([facility]) 02/05/2025 Refill [facility] [address] [place] [address] Jovanna Mcarthur MD Other hyperlipidemia; Type 2 diabetes mellitus without complication, without long-term current use of insulin ([facility]) from Last 3 Months Immunizations Immunization Administration Dates Next Due Hep B, adult [...] Sign Reading Time Taken Comments Blood Pressure 138/67 03/09/2025 11:15 AM EDT Pulse 84 03/09/2025 11:15 AM EDT Temperature 36.8 C (98.2 F) 03/09/2025 11:15 AM EDT Respiratory Rate 12 03/09/2025 11:15 AM EDT Oxygen Saturation 97% 03/09/2025 11:15 AM EDT Inhaled Oxygen Concentration - - Weight 71.2 kg (157 lb) 03/09/2025 11:15 AM EDT Height 162.6 cm (5' 4 ) 03/09/2025 11:15 AM EDT Body Mass Index 26.95 03/09/2025 11:15 AM EDT Plan of Treatment Upcoming Encounters Date Type Department Care Team (Late st Contact Info) Description 08/07/2025 9:00 AM EST Office Visit [facility] [address] [place] [address] Alina Villeda, OD [address] [place] [address] Health Maintenance Due Date Last Done Comments COVID-19 Vaccine ( season) 2024 06/25/2024, 10/13/2021, 12/22/2020, Additional history exists Influenza Vaccine (#1) 2025 , 06/20/2023, 07/15/2020, Additional history exists Diabetes: Hemoglobin A1C 06/09/2025 025, 12/01/2024, 06/25/2024, Additional history exists Depression Screening 06/25/2025 06/25/2024, 06/25/20 Alcohol/Substance Use Screening 07/31/2025 07/31/2024 Diabetes: Foot Exam 07/31/2025 07/31/2024, 07/31/2024, 07/31/2024 Diabetes: Urine Protein Screening 07/31/2025 07/31/2024, 04/11/2023, 02/10/2021 Lipid Panel 07/31/2025 07/31/2024, 03/18, 02/10/2021 SDOH Screening 11/24/2025 11/24/2024 DTaP/Tdap/Td Vaccines (2 - Td or Tdap) 02/09/2026 02/10/2016, 06/19/2012 Tobacco Screening 03/09/2026 03/09/2025 Eye Exam 07/03/2026 07/03/2024, 06/17, 07/03/2024, Additional history exists Hepatitis B Vaccines Completed 01/09/2018, 09/05/2017, 09/21/2016 Pneumococcal Vaccine: 50+ Years Completed 11/21/2023, 09/21/2016, 05/26/2015 RSV Patients and Patients Aged 60 years or older Completed 11/21/2023 Zoster Vaccines Completed 11/21/2023, 02/2023, [...] Perales Hemoglobin A1c < 8 Result Component 7.7( 11:16 AM EDT) No Cassia Perales Procedures Procedure Name Priority Date/Time Associated Diagnosis Comments POCT GLUCOSE Routine 03/09/2025 11:16 AM EDT Type 2 diabetes mellitus without complication, without long-term current use of insulin ([facility]) POCT GLYCATED HEMOGLOBIN, TOTAL Routine 03/09/2025 11:16 AM EDT Type 2 diabetes mellitus without complication, without long-term current use of insulin ([facility]) ALBUMIN, RANDOM URINE W/CREATININE Routine 07/31/2024 10:30 AM EST Type 2 diabetes mellitus without complication, without long-term current use of insulin ([facility]) LIPID PANEL, STANDARD Routine 07/31/2024 10:27 AM EST Type 2 diabetes mellitus without complication, without long-term current use of insulin ([facility]) Other hyperlipidemia from Last 3 Months or Most Recently Relevant to Health Maintenance Results * (ABNORMAL) POCT A1C (03/09/2025 11:16 AM EDT) Hemoglobin A1C 7.7(A) 4.0 - 6.0 % QC Media Lot # Comment:[id number] Lot# Expiration Date Comment:10/08/2026 Blood 03/09/2025 11:1 6 AM EDT us Jovanna Mcarthur MD POINT OF CARE TEST ENTER/ED IT ORDERABLES Final Result * (ABNORMAL) POCT glucose manually resulted (03/09/2025 11:16 AM EDT) Glucose Blood, POC 212(A) 60 - 200 mg/dL QC Media Lot # Comment:[id number] Lot# Expiration Date Comment:05/31/2025 Blood Capillary blood specimen / Unknown 03/09/2025 11:16 AM EDT us Jovanna Mcarthur MD POINT OF CARE TEST ENTER/ED IT ORDERABLES Final Result * (ABNORMAL) Albumin, Random Urine W/Creatinine (07/31/2024 10:30 AM EST) Creatinine, Urine 83.99 mg/dL [facility] Microalbumin Urine 164.0 mg/L [facility] Microalbum Creatinine Ratio Ur 195.2(H) <30 ug/mg cr [facility] Comment:Albumin/Creatinine R atio Reference Ranges: Normal: < 30 ug/mg creatinine Microalbuminuria: 30 - 300 ug/mg creatinineClinical Albuminuria: > 300 ug/mg creatinine Urine (Urine, Random) 07/31/2024 10:30 AM EST 07/31/2024 2:17 PM EST Jovanna Mcarthur MD LAB URINE ORDERABLES Final Result [facility] [address] [place] [phone] * Lipid Panel, Standard (07/31/2024 10:27 AM EST) Triglycerides 104 <150 mg/dL [facility] Comment:Desirable Triglyceri de: less than 150 mg/dLBorderline High Triglyceride 150-199 mg/dLHigh Triglyceride: 200-499 mg/dLVery High Triglyceride: greater than or equal to 5OO mg/dL Cholesterol 100 <200 mg/dL [facility] Comment:Desirable Cholestero l: less than 200 mg/dLBorderline High Cholesterol: 200-239 mg/dLHigh Cholesterol: greater than 239 mg/dL LDL Cholesterol Calculated 36 <100 mg/dL [facility] Comment:Desirable LDL: less than 100 mg/dLNear Optimal/Above Optimal LDL: 110- 129 mg/dLBorderline High LDL: 130-159 mg/dLHigh LDL: 160-189 mg/dLVery High LDL: greater than or equal to 190 mg/dL HDL Cholesterol 44 >40 mg/dL [facility] Comment:Desirable HDL: great er than 40 mg/dL Note: This HDL assay may give artificially low results in patients with liver disease. Blood Venous blood specimen / Unknown 07/31/2024 10:27 AM EST 07/31/2024 2:10 PM EST us Jovanna Mcarthur MD LAB BLOOD ORDERABLES Final Result [facility] [address] [place] [phone] from Last 3 Months or Most Recently Relevant to Health Maintenance Insurance [facility] USP OPTIONS (HMO D-SNP) [place] [id number] Care Teams Bridge Painter Helper Relationship Specialty Start Date End Date Jovanna Mcarthur MD [address] [place] [phone] PCP - General Internal Medicine 07/11/18
[2025-05-07 07:43] LABS: TS Negative Control Passed; TS Panel A 1; TS Panel B 1; TS Positive Control Passed; TSpotTB Negative (Negative)
== END 2025-05-04 10:41 | disposition home or self-care (01) ==
LOC: HO.CHCLDS 10:40
PROVIDERS: Visit Provider Internal Medicine
DX: Z11.1 Encounter for screening for respiratory tuberculosis (principal); E11.9 Type 2 diabetes mellitus without complications
CPT/HCPCS: 36415; 86481

== ENCOUNTER 2025-08-27 09:55 | Outpatient (REF) | payer OTHER, SELFPAY ==
[2025-08-27 15:06] LABS: MANUAL DIFF FLAG NO
[2025-08-27 15:10] LABS: Hematocrit 36.3 % (42.0-52.0); Hemoglobin 11.9 g/dl (14.0-18.0); Imm Gran Abs Auto 0.04 X10*3/uL (0.00-0.03); Imm Gran Pct Auto 0.4 % (0.0-0.4); Lymphocytes Absolute Auto 1.0 X10*3/uL (1.2-4.9); Mean Corpuscular HGB Conc 32.8 g/dl (31.0-36.0); Mean Corpuscular Hemoglobin 30.1 pg (27.0-33.0); Mean Corpuscular Volume 91.9 fL (80.0-98.0); NRBC Abs Auto 0.000 X10*3/uL (0.0-0.012); NRBC Pct Auto 0.0 /100WBC (0.0-0.2); Platelet Count 197 X10*3/uL (160-400); Red Blood Count 3.95 X10*6/uL (4.60-5.80); White Blood Count 8.9 X10*3/uL (4.8-10.8)
[2025-08-27 15:23] LABS: Microalbum/Creatinine Ratio Ur 184.5 ug/mg cr (<30)
[2025-08-27 16:04] LABS: Alanine Aminotransferase 32 U/L (0-40); Albumin Level 3.6 g/dL (3.5-5.0); Alkaline Phosphatase 158 U/L (39-117); Anion Gap 10 (12-20); Aspartate Amino Transferase 31 U/L (5-37); Blood Urea Nitrogen 30 mg/dL (9-16); Calcium 8.5 mg/dL (8.4-10.2); Carbon Dioxide 25 mmol/L (22-29); Chloride 104 mmol/L (96-108); Cholesterol 80 mg/dL (<200); Estimated Glomerular Filt Rate > 60; HDL Cholesterol 33 mg/dL (>40); Potassium 4.1 mmol/L (3.3-5.1); Sodium 135 mmol/L (135-145); Total Protein 6.0 g/dL (6.5-8.0); Triglycerides 74 mg/dL (<150)
== END 2025-08-27 09:56 ==
LOC: HO.CHCLDS 09:55
PROVIDERS: Visit Provider Internal Medicine
DX: E11.9 Type 2 diabetes mellitus without complications (principal); I10 Essential (primary) hypertension
CPT/HCPCS: 36415; 80053; 80061; 82043; 82570; 84443; 85025